=== PATIENT | female | born 1995 | race Caucasian/White ===

== ENCOUNTER → 2016-07-26 | Outpatient (CLI) | payer MEDICAID ==
[~2016-07-26] MED LIST: AGM875T PO; HYDR-3812 PO; HYOS0.1217 PO; METR500T21 PO; ONDA-42 SL; RNT150T PO; SERT50TA PO; SULF1TAB7 PO
[2016-07-26 19:01] LABS: BASOPHILS % (AUTO) 1 % (0-10); EOSINOPHILS % (AUTO) 0 % (0-10); LYMPHOCYTES # (AUTO) 1.5 X 10^3 (1.0-4.0); LYMPHOCYTES % (AUTO) 18 % (12-44); MEAN CORPUSCULAR HEMOGLOBIN 30 PG (25-34); MEAN CORPUSCULAR HGB CONC 34 G/DL (32-36); MEAN CORPUSCULAR VOLUME 86 FL (80-99); MEAN PLATELET VOLUME 10.6 FL (7.4-10.4); MONOCYTES # (AUTO) 0.3 X 10^3 (0.0-1.0); MONOCYTES % (AUTO) 4 % (0-12); NEUTROPHILS # (AUTO) 6.5 X 10^3 (1.8-7.8); NEUTROPHILS % (AUTO) 77 % (42-75); PLATELET COUNT 303 10^3/uL (130-400); RED BLOOD COUNT 4.63 10^6/uL (4.35-5.85); RED CELL DISTRIBUTION WIDTH 12.9 % (10.0-14.5); WHITE BLOOD COUNT 8.4 10^3/uL (4.3-11.0)
[2016-07-26 19:19] LABS: ALANINE AMINOTRANSFERASE 20 U/L (0-55); ALBUMIN 4.7 G/DL (3.2-4.5); ANION GAP 8 MMOL/L (5-14); ASPARTATE AMINO TRANSFERASE 24 U/L (5-34); BILIRUBIN,TOTAL 0.5 MG/DL (0.1-1.0); BLOOD UREA NITROGEN 9 MG/DL (7-18); BUN/CREATININE RATIO 11; CALCIUM 9.6 MG/DL (8.5-10.1); CARBON DIOXIDE 25 MMOL/L (21-32); CHLORIDE 107 MMOL/L (98-107); CREATININE SERUM 0.83 MG/DL (0.60-1.30); GFR ESTIMATED > 60; GLUCOSE 94 MG/DL (70-105); POTASSIUM 3.3 MMOL/L (3.6-5.0); SODIUM 140 MMOL/L (135-145); TOTAL PROTEIN 7.5 G/DL (6.4-8.2)
== END ==
LOC: LAB 18:47
PROVIDERS: ATTEND Family Medicine
DX: K51.011 Ulcerative (chronic) pancolitis with rectal bleeding (principal)
CPT/HCPCS: 36415; 80053; 85025

== ENCOUNTER → 2016-09-14 | Outpatient (CLI) | payer MEDICAID | DX: R53.83 Other fatigue (principal); K51.90 Ulcerative colitis, unspecified, without complications ==

== ENCOUNTER 2018-05-18 06:27 | Emergency (ER) | payer MEDICAID ==
[~2018-05-18] VITALS: Ht 165.1 cm; Wt 54.4 kg
[~2018-05-18 06:27] MED LIST changes: +ACHD5005 PO; -HYDR-3812 PO; +METR-145 PO; -METR500T21 PO
[2018-05-18] MEDS ORDERED: PRAZ1CAP2 (06:42)
[2018-05-18] MEDS ORDERED: CARI1.5C (06:42)
[2018-05-18] MEDS ORDERED: NS IV 1000 ML 1,000 ML IV ONE (06:57)
[2018-05-18] MEDS ORDERED: KETOROLAC 30 MG/ML VIAL IVP ONE (07:00)
[2018-05-18] MEDS ORDERED: ONDANSETRON 4 MG/2 ML (SDV) Z0FRAN IVP ONE (07:00)
[2018-05-18 07:22] LABS: BASOPHILS % (AUTO) 0 % (0-10); EOSINOPHILS % (AUTO) 0 % (0-10); HEMATOCRIT 38 % (35-52); HEMOGLOBIN 12.5 G/DL (11.5-16.0); LYMPHOCYTES # (AUTO) 1.4 X 10^3 (1.0-4.0); LYMPHOCYTES % (AUTO) 13 % (12-44); MEAN CORPUSCULAR HEMOGLOBIN 29 PG (25-34); MEAN CORPUSCULAR HGB CONC 33 G/DL (32-36); MEAN CORPUSCULAR VOLUME 88 FL (80-99); MEAN PLATELET VOLUME 9.5 FL (7.4-10.4); MONOCYTES # (AUTO) 1.8 X 10^3 (0.0-1.0); MONOCYTES % (AUTO) 17 % (0-12); NEUTROPHILS # (AUTO) 7.7 X 10^3 (1.8-7.8); NEUTROPHILS % (AUTO) 70 % (42-75); PLATELET COUNT 351 10^3/uL (130-400); RED CELL DISTRIBUTION WIDTH 13.1 % (10.0-14.5)
[2018-05-18 07:42] LABS: ALANINE AMINOTRANSFERASE 16 U/L (0-55); ALBUMIN 3.9 GM/DL (3.2-4.5); ALKALINE PHOSPHATASE 67 U/L (40-136); BILIRUBIN,TOTAL 0.2 MG/DL (0.1-1.0); BUN/CREATININE RATIO 9; CALCIUM 8.9 MG/DL (8.5-10.1); CARBON DIOXIDE 24 MMOL/L (21-32); CHLORIDE 105 MMOL/L (98-107); CREATININE SERUM 0.65 MG/DL (0.60-1.30); GFR ESTIMATED > 60; GLUCOSE 95 MG/DL (70-105); MAGNESIUM 1.9 MG/DL (1.8-2.4); POTASSIUM 3.9 MMOL/L (3.6-5.0); SODIUM 137 MMOL/L (135-145); TOTAL PROTEIN 7.2 GM/DL (6.4-8.2)
--- NOTE | 2018-05-18 08:11 | ED Headache ---
General Chief Complaint: Head/Cervical Problems Stated Complaint: MIGRAINE Nursing Triage Note: headache x3 days. dental abcess. Nursing Sepsis Screen: No Definite Risk Source: patient Exam Limitations: no limitations History of Present Illness Date Seen by Provider: May 18, 2018 Time Seen by Provider: 06:47 Initial Comments This 22-year-old young lady presents to emergency room with severe headache 3 days. It is associated with nausea and some light and sound sensitivity. Headache started in the frontal region and has migrated to the occiput and neck. She denies any fever. She denies as she is on Depo-Provera. She has had prior headaches but this seems more intense then with her headaches. She also reports having an eroded tooth on the right mandible which she thinks may be a contributing factor. She reports flbk-mqz-[id number] medications have been ineffective in treating her headache. She is tearful. Allergies and Home Medications Allergies Coded Allergies: No Known Drug Allergies (Unverified , 08/22/09) Home Medications Amoxicillin 500 Mg Capsule, 1,000 MG PO TID Prescribed by: EMERITA MARTELL on 05/18/18 1157 Fluticasone Propionate 9.9 Ml [place].susp, 2 SPRAY NSEACH DAILY 2 SPRAYS PER NOSTRIL DAILY X 2 DAYS THEN 1 SPRAY DAILY Prescribed by: EMERITA MARTELL on 05/18/18 1157 Tramadol HCl 50 Mg Tablet, 50 MG PO Q6H PRN for PAIN-MODERATE TO SEVERE Prescribed by: EMERITA MARTELL on 05/18/18 1157 Patient Home Medication List Home Medication List Reviewed: Yes Review of Systems Review of Systems Constitutional: no symptoms reported Eyes: See HPI Ears, Nose, Mouth, Throat: see HPI Respiratory: no symptoms reported Cardiovascular: no symptoms reported Gastrointestinal: see HPI Genitourinary: no symptoms reported : No Musculoskeletal: no symptoms reported Skin: no symptoms reported Psychiatric/Neurological: See HPI Past Xauxpqo-Bkgwjg-Qyknnc Hx Past Med/Social Hx: Reviewed and Corrections made Patient Social History Alcohol Use: Denies Use Recreational Drug Use: No Smoking Status: Never a Smoker 2nd Hand Smoke Exposure: No Recent Foreign Travel: No Contact w/Someone Who Travel: No Recent Infectious Disease Expo: No Recent Hopitalizations: No Immunizations Up To Date Tetanus Booster (TDap): Unknown PED Vaccines UTD: Yes Seasonal Allergies Seasonal Allergies: No Past Medical History Surgeries: Yes (UPPER AND LOWER GI endoscopy) Respiratory: No Cardiac: No Neurological: Yes Headaches /Migraines : No Reproductive Disorders: No Genitourinary: No Gastrointestinal: Yes (ULCERATIVE COLITIS HX) Musculoskeletal: No Endocrine: No HEENT: No Cancer: No Psychosocial: Yes Anxiety, Depression Integumentary: No Blood Disorders: No Family Medical History Reviewed Nursing Family Hx No Pertinent Family Hx Physical Exam Vital Signs Vital Signs - First Documented 05/18/18 06:35 Temp 96.8 Pulse 117 Resp 18 B/P (MAP) 129/98 (108) Pulse Ox 100 O2 Delivery Room Air Capillary Refill : Less Than 3 Seconds Height, Weight, BMI Height: 5'5.00" Weight: 120lbs. oz. 54.587577ai; 19.76 BMI Method:Stated General Appearance: WD/WN, mild distress HEENT: PERRL/EOMI, normal ENT inspection, pharynx normal, other (Eroded tooth on the right mandible without overt abscess) Neck: full range of motion, normal inspection Cardiovascular: no edema, no murmur, tachycardia Respiratory: lungs clear, normal breath sounds, no respiratory distress, no accessory muscle use Gastrointestinal: normal bowel sounds, non tender, soft Extremities: normal inspection, no pedal edema Psychiatric: alert, oriented x 3 Crainal Nerves: normal hearing, normal speech, PERRL Motor/Sensory: no motor deficit, no sensory deficit Skin: normal color, warm/dry Progress/Results/Core Measures Results/Orders Lab Results Laboratory Tests Test 05/18/18 07:10 Range/Units White Blood Count 11.0 4.3-11.0 10^3/uL Red Blood Count 4.29 L 4.35-5.85 10^6/uL Hemoglobin 12.5 11.5-16.0 G/DL Hematocrit 38 35-52 % Mean Corpuscular Volume 88 80-99 FL Mean Corpuscular Hemoglobin 29 25-34 PG Mean Corpuscular Hemoglobin Concent 33 32-36 G/DL Red Cell Distribution Width 13.1 10.0-14.5 % Platelet Count 351 130-400 10^3/uL Mean Platelet Volume 9.5 7.4-10.4 FL Neutrophils (%) (Auto) 70 42-75 % Lymphocytes (%) (Auto) 13 12-44 % Monocytes (%) (Auto) 17 H 0-12 % Eosinophils (%) (Auto) 0 0-10 % Basophils (%) (Auto) 0 0-10 % Neutrophils # (Auto) 7.7 1.8-7.8 X 10^3 Lymphocytes # (Auto) 1.4 1.0-4.0 X 10^3 Monocytes # (Auto) 1.8 H 0.0-1.0 X 10^3 Eosinophils # (Auto) 0.0 0.0-0.3 10^3/uL Basophils # (Auto) 0.0 0.0-0.1 10^3/uL Sodium Level 137 135-145 MMOL/L Potassium Level 3.9 3.6-5.0 MMOL/L Chloride Level 105 98-107 MMOL/L Carbon Dioxide Level 24 21-32 MMOL/L Anion Gap 8 5-14 MMOL/L Blood Urea Nitrogen 6 L 7-18 MG/DL Creatinine 0.65 0.60-1.30 MG/DL Estimat Glomerular Filtration Rate > 60 BUN/Creatinine Ratio 9 Glucose Level 95 70-105 MG/DL Calcium Level 8.9 8.5-10.1 MG/DL Corrected Calcium 9.0 8.5-10.1 MG/DL Magnesium Level 1.9 1.8-2.4 MG/DL Total Bilirubin 0.2 0.1-1.0 MG/DL Aspartate Amino Transf (AST/SGOT) 19 5-34 U/L Alanine Aminotransferase (ALT/SGPT) 16 0-55 U/L Alkaline Phosphatase 67 40-136 U/L C-Reactive Protein High Sensitivity 1.76 H 0.00-0.50 MG/DL Total Protein 7.2 6.4-8.2 GM/DL Albumin 3.9 3.2-4.5 GM/DL Serum Test, Qualitative NEGATIVE NEGATIVE My Orders Orders - EMERITA SHAVER MD Cbc With Automated Diff (05/18/18 06:57) Comprehensive Metabolic Panel (05/18/18 06:57) Hcg,Qualitative Serum (05/18/18 06:57) Magnesium (05/18/18 06:57) Saline Lock/Iv-Start (05/18/18 06:57) Hs C Reactive Protein (05/18/18 06:57) Ketorolac Injection (Toradol Injection) (05/18/18 07:00) Ondansetron Injection (Zofran Injectio (05/18/18 07:00) Ns Iv 1000 Ml (Sodium Chloride 0.9%) (05/18/18 06:57) Ct Head Wo (05/18/18 08:09) Fentanyl Injection (Sublimaze Injection (05/18/18 08:15) Medications Given in ED Current Medications Medications Dose Ordered Sig/Saul Route Start Time Stop Time Status Last Admin Dose Admin Fentanyl Citrate 50 mcg ONCE ONCE IVP 05/18/18 08:15 05/18/18 08:16 DC 05/18/18 09:23 50 MCG Vital Signs/I&O 05/18/18 05/18/18 06:35 12:19 Temp 96.8 96.8 Pulse 117 82 Resp 18 18 B/P (MAP) 129/98 (108) 117/86 (96) Pulse Ox 100 100 O2 Delivery Room Air Blood Pressure Mean: 108 Progress Progress Note #1: Time: 08:10 Progress Note Patient received Toradol, IV fluids, and Zofran. Her nausea has improved. Her headache has decreased from 9/10 down to 6/10. We discussed CT imaging risks and benefits. She is concerned about the duration and intensity of her headache and would like the CT done, acknowledging the risks. Fentanyl was ordered for further pain management. Progress Note #2: Progress Note CT revealed no intracranial abnormalities to explain her headache but she did have extensive sinusitis identified. Sinusitis and dental disease may be a trigger for this headache. Antibiotics were prescribed. Diagnostic Imaging Diagonstic Imaging: CT Plain Films/CT/US/NM/MRI: head Comments CT head viewed by me, report reviewed, and discussed with radiologist. See report below: NAME: SAIDA YU [facility] REC#: [id number] PT STATUS: REG ER : 1995 PHYSICIAN: EMERITA SHAVER MD ADMIT DATE: 05/18/18/ER Signed Date of Exam: 05/18/18 CT HEAD WO PROCEDURE: CT head without contrast. TECHNIQUE: Multiple contiguous axial images were obtained through the brain without the use of intravenous contrast. INDICATION: Migraine headache. There are no prior studies available for comparison There is no mass, shift of midline or hemorrhage to suggest an acute intracranial abnormality. The ventricles are not abnormally dilated. The bone windows show no evidence for fracture or for destructive lesion. The orbits and sinuses were not visualized in their entirety. There does appear be fairly severe mucosal thickening of the sphenoid and ethmoid sinuses. The frontal sinuses are clear. The maxillary sinuses were visualized and were unremarkable IMPRESSION: 1. There is no evidence for acute intracranial abnormality. 2. If clinical concern regarding an underlying abnormality persists, then MRI would be recommended for further study. 3. There is fairly severe sphenoid and bilateral ethmoid sinusitis. 4. These results were discussed with Dr. Martell. Dictated by: Dictated on workstation # [id number] Dict: 05/18/18 1019 Trans: 05/18/18 1149 Interpreted by: ANTONY MOREIRA MD Electronically signed by: ANTONY MOREIRA MD 05/18/18 1149 Departure Impression Primary Impression: Acute headache Qualified Codes: R51 - Headache Additional Impressions: Nausea Sinusitis, acute, sphenoidal Qualified Codes: J01.30 - Acute sphenoidal sinusitis, unspecified Sinusitis, acute ethmoidal Qualified Codes: J01.20 - Acute ethmoidal sinusitis, unspecified Dental decay Disposition: 01 HOME, SELF-CARE Condition: Improved Departure-Patient Inst. Decision time for Depature: 11:54 Referrals: [facility] (PCP/Family) Primary Care Physician Patient Instructions: Headache, Adult (DC), Sinusitis, Adult (DC) Add. Discharge Instructions: Complete your antibiotics as prescribed. Follow-up with your primary care provider before you complete the antibiotics. A longer course of antibiotics may be necessary. Use Flonase every day as prescribed. For pain, start with ibuprofen up to 600 mg every 6 hours as needed. Add Tylenol and/or Ultram (tramadol) if needed. Return to care if symptoms are worsening despite these treatments. All discharge instructions reviewed with patient and/or family. Voiced understanding. Scripts Tramadol HCl (Ultram) 50 Mg Tablet 50 MG PO Q6H PRN for PAIN-MODERATE TO SEVERE, #10 TAB Prov: EMERITA SHAVER MD 05/18/18 Fluticasone Propionate (Flonase Allergy Relief) 9.9 Ml Beverly.susp 2 SPRAY NSEACH DAILY, #1 EACH 2 SPRAYS PER NOSTRIL DAILY X 2 DAYS THEN 1 SPRAY DAILY Prov: EMEIRTA SHAVER MD 05/18/18 Amoxicillin (Amoxicillin) 500 Mg Capsule 1000 MG PO TID, #60 CAP Prov: EMERITA SHAVER MD 05/18/18 Copy Copies To 1: MOE WILLIS JOSHUA T MD May 18, 2018 08:11
[2018-05-18] MEDS ORDERED: fentaNYL INJECTION 100 MCG/2 ML AMP IVP ONE (08:15)
--- NOTE | 2018-05-18 10:31 | Diagnostic Imaging Report ---
PROCEDURE: CT head without contrast. TECHNIQUE: Multiple contiguous axial images were obtained through the brain without the use of intravenous contrast. INDICATION: Migraine headache. There are no prior studies available for comparison There is no mass, shift of midline or hemorrhage to suggest an acute intracranial abnormality. The ventricles are not abnormally dilated. The bone windows show no evidence for fracture or for destructive lesion. The orbits and sinuses were not visualized in their entirety. There does appear be fairly severe mucosal thickening of the sphenoid and ethmoid sinuses. The frontal sinuses are clear. The maxillary sinuses were visualized and were unremarkable IMPRESSION: 1. There is no evidence for acute intracranial abnormality. 2. If clinical concern regarding an underlying abnormality persists, then MRI would be recommended for further study. 3. There is fairly severe sphenoid and bilateral ethmoid sinusitis. 4. These results were discussed with Dr. Martell. Dictated by: Dictated on workstation # [id number]
[2018-05-18] MEDS ORDERED: TRAM-42 PO (11:57)
[2018-05-18] MEDS ORDERED: AMOX500C2 PO (11:57)
[2018-05-18] MEDS ORDERED: FLUT9.9S NSEACH (11:57)
[2018-05-18 12:19] VITALS: BP 117/86
== END 2018-05-18 12:20 | disposition home or self-care (01) ==
LOC: EDUNIT# 06:27 → ER 06:30
DX: R51 Headache (principal); R11.0 Nausea; J01.20 Acute ethmoidal sinusitis, unspecified; K02.9 Dental caries, unspecified; F41.9 Anxiety disorder, unspecified; F32.9 Major depressive disorder, single episode, unspecified; Z87.19 Personal history of other diseases of the digestive system; Z86.69 Personal history of other diseases of the nervous system and sense organs; Z79.51 Long term (current) use of inhaled steroids; Z98.890 Other specified postprocedural states
CPT/HCPCS: 36415; 70450; 80053; 83735; 84703; 85025; 86141